=== PATIENT | female | born 1995 | race Caucasian/White ===

== ENCOUNTER 2021-06-06 17:51 | Emergency (ER) | payer OTHER ==
[2021-06-06] MEDS ORDERED: SODIUM CHLORIDE 0.9% 1,000 ML IV STA (18:58)
[2021-06-06] MEDS ORDERED: ONDANSETRON 4 MG/2 ML VIAL IVP STA (18:58)
--- NOTE | 2021-06-06 18:59 | ED Physician Documentation ---
History of Present Illness - Stated complaint Stated Complaint: NAUSEA,VOMITING,CHILLS,BODYACHES - Chief complaint Chief Complaint: General - History obtained from History obtained from: Patient - Additonal information Additional information: 26-year-old G2, P1 at 11 weeks gestation presents with vomiting starting last night. She has had trouble with vomiting through this but has been worse now. Also she was exposed to Covid by a family member and she is vaccinated but has some body aches and chills as well. No diarrhea. Mild cramping but no bleeding or fluid loss. No measured fevers. Review of Systems Constitutional: reports: Chills Nose: reports: Rhinorrhea / runny nose Throat: denies: Sore throat Respiratory: denies: Cough PD PAST MEDICAL HISTORY - Present Medications Home Medications: Ambulatory Orders Medication Instructions Recorded Confirmed Ondansetron Odt [Zofran] 4 mg TL Q6H PRN #10 tablet 06/06/21 - Allergies Allergies/Adverse Reactions: Allergies Allergy/AdvReac Type Severity Reaction Status Date / Time No Known Drug Allergies Allergy Verified 06/06/21 18:01 PD ED PE NORMAL - Vitals Vital signs reviewed: Yes - General General: Alert and oriented X 3, No acute distress - Cardiac Cardiac: No murmur, Other (Resting tachycardia) - Respiratory Respiratory: No respiratory distress, Clear bilaterally - Abdomen Abdomen: Normal bowel sounds, Soft, Non tender - Female Female : Other (Bedside ultrasound demonstrates single live intrauterine with positive motion and heart rate.) - Back Back: No CVA TTP, No spinal TTP - Derm Derm: Normal color, Warm and dry - Extremities Extremities: No edema, No calf tenderness / cord - Neuro Neuro: Alert and oriented X 3, Normal speech Results - Vitals Vitals: Vital Signs - 24 hr 06/06/21 06/06/21 06/06/21 17:55 18:51 19:18 Temperature 37.3 C 36.7 C Heart Rate 122 H 102 H 867 H Respiratory 16 16 16 Rate Blood Pressure 111/63 109/59 L 104/68 O2 Saturation 100 99 100 06/06/21 19:19 Temperature Heart Rate 89 Respiratory 18 Rate Blood Pressure 104/68 O2 Saturation 98 Oxygen O2 Source Room air PD MEDICAL DECISION MAKING - ED course ED course: 26-year-old woman with vomiting related to but also some nonspecific viral symptoms. Benign examination and reassuring bed side ultrasound of the fetus. Feeling better after IV fluids and Zofran. Departure - Departure Disposition: 01 Home, Self Care Clinical Impression: 11 weeks gestation of Vomiting Qualifiers: Vomiting type: unspecified Nausea presence: with nausea Qualified Code(s): R11.2 - Nausea with vomiting, unspecified Condition: Good Record reviewed to determine appropriate education?: Yes Instructions: ED Preg Morning Sickness Prescriptions: Ondansetron Odt [Zofran] 4 mg TL Q6H PRN #10 tablet PRN Reason: Nausea / Vomiting Comments: You have a Covid test pending. You need to self quarantine until the result is done and negative. Do not leave your house. Do not get near anybody. The results should be done in 48 to 72 hours. We will call with a positive result, the fastest way to get a negative result for confirmation though is to go to the hospital website at [email or web address], click on the my [employer] tab and sign up for the patient portal. If any friends or family get sick and would like to have a Covid test done, but do not have signs or symptoms that would necessitate being hospitalized, there are multiple local options for Covid testing. [facility] keeps an updated list of testing and vaccination options at: [email or web address]. Forms: Activity restrictions
[2021-06-06] MEDS ORDERED: ONDANSETRON ODT 4 MG Prepack 2 TL STA (20:28)
[2021-06-06] MEDS ORDERED: ACETAMINOPHEN 325 MG TABLET PO STA (20:29)
[2021-06-06 20:47] VITALS: BP 110/68
== END 2021-06-06 20:47 | disposition home or self-care (01) ==
LOC: ED 17:51
DX: O98.511 Other viral diseases complicating pregnancy, first trimester (principal); U07.1 COVID-19; O21.9 Vomiting of pregnancy, unspecified; Z3A.11 11 weeks gestation of pregnancy
CPT/HCPCS: 87635; 96361; 96374; 99283; A9270